=== PATIENT | female | born 1945 | race African-American/Black ===

== ENCOUNTER 2016-11-19 19:29 | Emergency (ER) | payer MEDICARE ==
--- NOTE | ~2016-11-19 | CR72 ---
[facility] A Service of [facility] & [facility] RADIOLOGY TEXT RESULTS PATIENT: JENNA NAZARIO LOCATION: [facility] : 47 UNIT #: [id number] AGE: [address]: Erin Chatterjee MD SEX: F ORDER DR: [id number] [facility] [address] [place], [place] [address] [id number] E MR#: [id number] Acc #: [id number] NAME: JENNA NAZARIO : 1945 SEX: F STUDY DATE/TIME: 11/19/2016 21:05 UNIT: [facility] ROOM: STUDY DESCRIPTION: CR Chest Single View Portable Attending Physician: Erin Chatterjee M.D. Ordering Physician: Ed Vineet Curry M.D. Primary Care Physician: Primary Care Physician No MEDICAL IMAGING REPORT This report is preliminary unless electronic signature is present EXAM AP portable chest HISTORY Fever, cough, congestion, shortness of air x4 days FINDINGS Portable view chest demonstrates cardiomegaly without failure. Mild aortic atherosclerotic changes. Small amount of left basilar atelectasis though a patchy infiltrate not excluded. No effusions. Osseous structures unremarkable for age. No pneumothorax. Dictated by... Alexander Self M.D. THIS IS AN ELECTRONICALLY VERIFIED REPORT Alexander Self M.D. at 11/20/2016 2:49 PM ALTAGRACIA/bravo TD: 11/20/2016 04:09 JOB #: [id number] MEDICAL IMAGING REPORT Page 1 of 1 COPY
--- NOTE | ~2016-11-19 | EKG ---
PATIENT: JENNA NAZARIO UNIT #: [id number] Ventricular Rate: 68 BPM Atrial Rate: 68 BPM P-R Interval: 180 ms QRS Duration: 96 ms Q-T Interval: 430 ms QTC Calculation(Bezet): 457 ms P [place]: 40 degrees Calculated R [place]: 2 degrees Calculated T [place]: 17 degrees Diagnosis Line: Normal sinus rhythm Diagnosis Line: Nonspecific ST and T wave abnormality Diagnosis Line: Abnormal ECG Diagnosis Line: No previous ECGs available Diagnosis Line: Confirmed by MATTEO CASE MD ([id number]) on Diagnosis Line: 11/21/2016 7:14:14 AM INTERPRETING REGINALDO WILKINS
[2016-11-19 20:26] LABS: BASOPHIL% 0.3 % (0-2.5); DIFF IND NO; EOSINOPHIL% 0.7 % (0.0-7.0); HEMOGLOBIN 12.6 gm/dL (12.0-16.0); LYMPHOCYTE# 1.3 X10e3 (1.0-3.5); LYMPHOCYTE% 31.1 % (17.0-45.0); MEAN CORPUSCULAR HEMOGLOBIN 24.9 PG (28-34); MEAN CORPUSCULAR HGB CONC 31.5 g/dL (30-36); MEAN PLATELET VOLUME 8.9 FL (6.5-11.5); MONOCYTE# 0.8 X10e3 (0-1.0); MONOCYTE% 18.4 % (3.0-12.0); NEUTROPHIL# 2.1 X10e3 (1.5-7.1); NEUTROPHIL% 49.5 % (40-75); PLATELET COUNT 147 X10e3 (140-420); RED BLOOD COUNT 5.06 X10e (3.90-5.30); RED CELL DISTRIBUTION WIDTH 17.1 % (11.0-15.5); WHITE BLOOD COUNT 4.1 X10e3 (4.0-10.5)
[2016-11-19 20:45] LABS: BILIRUBIN, DIRECT 0.1 mg/dL (0.0-0.2); BILIRUBIN,INDIRECT 0.2 mg/dL (0.0-0.9); BILIRUBIN,TOTAL 0.3 mg/dL (0.2-2.0); BUN/CREATININE RATIO 14.16; CALCIUM SERUM 8.6 mg/dL (8.4-10.2); CREATININE SERUM 1.2 mg/dL (0.6-1.4); GLOM FILT RATE Estimated 45.8 mL/min (>60); POTASSIUM 3.6 mmol/L (3.5-5.1); PROTEIN TOTAL SERUM 7.9 g/dL (6.0-8.3)
[2016-11-19 22:25] LABS: POC - TROPONIN <0.05 ng/mL (<=0.05)
[2016-11-19 22:31] LABS: POC - CKMB <1.0 ng/mL (0.0-7.9); POC - TROPONIN <0.05 ng/mL (<=0.05)
== END 2016-11-19 23:50 | disposition home or self-care (01) ==
LOC: CED 19:29
PROVIDERS: Emergency Medicine
DX: J18.9 Pneumonia, unspecified organism (principal); I50.9 Heart failure, unspecified; E03.9 Hypothyroidism, unspecified
CPT/HCPCS: 36415; 71010; 80048; 80076; 82553; 83690; 83880; 84484; 85025; 93005; 94640; 96365; 96375; 99285; J0696; J1885; J2930

== ENCOUNTER 2017-01-16 15:48 | Emergency (ER) | payer MEDICARE ==
[~2017-01-16] VITALS: Ht 167.6 cm; Wt 104.3 kg
--- NOTE | ~2017-01-16 | CR181 ---
[facility] A Service of [facility] RADIOLOGY TEXT RESULTS PATIENT: JENNA NAZARIO LOCATION: [facility] : 47 UNIT #: [id number] AGE: [address]: Geno Wolf SEX: F ORDER DR: [id number] [facility] [address] [place], [place] [address] [id number] E MR#: [id number] Acc #: [id number] NAME: JENNA NAZARIO. : 1945 SEX: F STUDY DATE/TIME: 01/16/2017 16:49 UNIT: [facility] ROOM: STUDY DESCRIPTION: CR Lumbar Spine 2 or 3 Views Attending Physician: Geno Wolf Pa-C Ordering Physician: Ed Doctor [id number] [facility] Primary Care Physician: Car Avery M.D. MEDICAL IMAGING REPORT This report is preliminary unless electronic signature is present EXAM Three views lumbar spine 01/16/2017 HISTORY Lower back pain radiating to the left leg for 1 week. No known injury. COMPARISON Lumbar spine radiographs 06/17/2012. FINDINGS No acute lumbar spine fracture or subluxation is seen. Advanced facet arthropathy is present at multiple lumbar levels thought to be greatest at L3-4 through L5-S1. Disc space height appears preserved. Minimal anterolisthesis of L4 on L5, unchanged. No sacroiliac joint diastasis. Cholecystectomy. IMPRESSION 1. Very mild grade 1 anterolisthesis L4 upon L5 is unchanged. 2. Advanced multilevel facet arthropathy greatest at L3-4 through L5-S1. 3. Disc space height appears maintained. 4. No acute findings. Dictated by... Una Burr M.D. THIS IS AN ELECTRONICALLY VERIFIED REPORT Una Burr M.D. at 01/17/2017 2:21 PM MICHELE/sami TD: 01/17/2017 07:46 JOB #: [id number] [facility] A Service of [facility] RADIOLOGY TEXT RESULTS PATIENT: JENNA NAZARIO LOCATION: [facility] : 47 UNIT #: [id number] AGE: [address]: Geno Wolf SEX: F ORDER DR: MEDICAL IMAGING REPORT Page 1 of 1 COPY
== END 2017-01-16 17:53 | disposition home or self-care (01) ==
LOC: CFTX 15:48 → CED 15:48 → CFTX 17:30
DX: M54.42 Lumbago with sciatica, left side (principal); I50.9 Heart failure, unspecified; Z90.49 Acquired absence of other specified parts of digestive tract; Z98.51 Tubal ligation status; Z88.5 Allergy status to narcotic agent
CPT/HCPCS: 72100; 99283